=== PATIENT | female | born 1955 | race Caucasian/White ===

== ENCOUNTER → 2019-01-30 | Outpatient (CLI) | payer MEDICARE, OTHER | LOC: GMAM 10:23 | PROVIDERS: ATTEND Family Medicine | DX: C50.211 Malignant neoplasm of upper-inner quadrant of right female breast (principal); E78.2 Mixed hyperlipidemia; E03.9 Hypothyroidism, unspecified ==

== ENCOUNTER → 2019-02-08 | Outpatient (CLI) | payer MEDICARE, OTHER ==
--- NOTE | 2019-02-09 18:22 | US ---
EXAM DESCRIPTION: Abdomen,Limited: ULTRASOUND. CLINICAL HISTORY: RIGHT UPPER QUADRANT PAIN COMPARISON: XR abdomen 05 of February. TECHNIQUE: Transabdominal scanning: johnston-scale mode. Doppler mode. FINDINGS: Gallbladder: normal size, shape, echogenicity; no intraluminal stones or sludge. No fluid around the gallbladder. No wall thickening. 2.5 mm. Non-tender with transducer pressure. Common bile duct: caliber 4.5 mm within normal limits. Liver: Increased echogenicity; contour liver capsule smooth where seen. No fluid around the liver. Intrahepatic biliary ducts normal caliber. Doppler hepatopedal flow and normal caliber portal vein.. Long axis right lobe 13.9 cm. Pancreas: normal size and minimally increased echogenicity. Duct not seen. Proximal abdominal aorta: 1.6 cm normal caliber.. IVC: visualized and normal caliber. Right kidney: long axis measures 9.2 cm. Normal cortical Echogenicity. Normal cortical thickness. No stones or hydronephrosis. IMPRESSION: 1. Fatty liver normal size with no focal lesions. Physiologic blood flow and normal ducts. Smooth capsule with no ascites. Fatty pancreas but normal size. 2. Gallbladder and right kidney unremarkable. Normal caliber of the proximal abdominal aorta. Electronically signed by: Sagar Da Silva MD 02/09/2019 6:20 PM [facility]
== END ==
LOC: US 08:30
PROVIDERS: ATTEND Family Medicine
DX: K76.0 Fatty (change of) liver, not elsewhere classified (principal)

== ENCOUNTER → 2019-08-21 | Outpatient (CLI) | payer MEDICARE, OTHER | LOC: LAB.O 09:53 | PROVIDERS: ATTEND Family Medicine | DX: E78.5 Hyperlipidemia, unspecified (principal); E03.9 Hypothyroidism, unspecified; M85.80 Other specified disorders of bone density and structure, unspecified site; C73 Malignant neoplasm of thyroid gland; Z85.3 Personal history of malignant neoplasm of breast ==

== ENCOUNTER → 2019-09-02 | Outpatient (CLI) | payer MEDICARE, OTHER ==
--- NOTE | 2019-09-03 15:19 | MAM ---
EXAM DESCRIPTION: 3D Screening BILATERAL : Digital Mammography. CLINICAL HISTORY: 64 years Female SCREENING right breast cancer with lumpectomy and treatment November 2017. No current complaints. No family history breast cancer. Menarche age 13. Childbirth age 27. Menopause age 46. No HRT. Lifetime risk of developing breast cancer (Tyrer-Cuzick model)(%): Not calculated due to personal history of breast cancer. COMPARISON: 2-D digital screening bilateral mammography May 2014 diagnostic right breast 2-D mammography December 2017.. No prior reports available. TECHNIQUE: Bilateral CC and MLO projection full-field images, digital tomosynthesis mammographic technique Bilateral digital 2-D full-field MLO images. CAD available for 2-D images. Technologist note: Multiple skin moles on both breasts, so no markers applied. FINDINGS: The breast parenchymal density pattern is: Heterogeneously dense breast tissue, which may obscure small masses. No skin thickening or nipple retraction. Left axillary lymph nodes. Solitary microcalcifications and vascular calcifications. Surgical clips with minimal architectural distortion upper outer quadrant of the posterior third of the right breast at site of prior tumor resection and treatment. Bilateral fibroglandular tissues are decreased since the prior study. No new focal, stellate mass or density, focal asymmetry , and no suspicious microcalcifications bilaterally. IMPRESSION: Benign exam. BIRAD CATEGORY: 2 BENIGN FINDINGS. RECOMMENDATIONS: FOLLOW UP: Routine digital bilateral mammographic screening, one year interval from August 2019. Written communication explaining the IMPRESSION and follow-up, will be mailed to the patient and referring health care provider. According to the [employer], yearly mammograms are recommended starting at age 40 and continuing as long as a woman is in good health. Any breast change noted on a breast self-exam should be reported promptly to the patient's healthcare provider. Breast MRI is recommended for women with an approximately 20-25% or greater lifetime risk of breast cancer, including women with a strong family history of breast or ovarian cancer and women who have been treated for Hodgkin's disease. A negative mammographic report should not delay tissue diagnosis in patients with significant clinical history or physical findings. Extremely dense breast tissue limits the sensitivity of digital mammography. Electronically signed by: Sagar Da Silva MD 09/03/2019 3:18 PM CDT
== END ==
LOC: MAMMO 13:25
PROVIDERS: ATTEND Family Medicine
DX: Z12.31 Encounter for screening mammogram for malignant neoplasm of breast (principal); R00.2 Palpitations

== ENCOUNTER 2019-09-17 12:35 | Emergency (ER) | payer MEDICARE, OTHER ==
[2019-09-17 12:56] VITALS: O2SAT 99
[2019-09-17] MEDS: SODIUM CHLORIDE 0.9% (FLUSH) 10 ML SYG IV PRN ×2 (13:21→14:19)
[2019-09-17] MEDS ORDERED: ASPIRIN (CHEWABLE) 81 MG TAB PO ONE (13:28)
--- NOTE | 2019-09-17 13:50 | RAD ---
EXAM DESCRIPTION: Chest,1 View: CR/DR/XR. CLINICAL HISTORY: 64 years Female jaw pain COMPARISON: 2 view chest January 2018 and January 2019. TECHNIQUE: ONE VIEW PORTABLE. AP 1332 hours, upright position. FINDINGS: Moderate expansion of the lungs. No acute infiltrate. No pneumothorax or pleural effusion. Cardiopulmonary vascular structures and mediastinal silhouette are negative. Monitoring leads on the chest. IMPRESSION: No radiographic evidence of acute cardiopulmonary disease. Stable compared to prior studies. Electronically signed by: Sagar Da Silva MD 09/17/2019 1:49 PM CDT
[2019-09-17] MEDS ORDERED: MAGNESIUM SULFATE PREMIX 2GM 2 GM in PREMIX BAG 1 BAG IVPB ONE (14:30)
[2019-09-17] MEDS ORDERED: SODIUM CHLORIDE 0.9% IVPB SCH (15:30)
[2019-09-17] MEDS ORDERED: LABETALOL IVPB SCH (15:30)
[2019-09-17] MEDS ORDERED: METOPROLOL TARTRATE INJ 5 MG/5 ML VIAL IV ONE (15:31)
--- NOTE | 2019-09-17 16:07 | ED.PDOC ---
History of Present Illness - General Chief Complaint: Chest Pain/NH Stated Complaint: jaw pain, chest pain Time Seen by Provider: 09/17/19 13:27 Source: patient, RN notes reviewed, Vital Signs reviewed, family - Daughter Exam Limitations: no limitations - History of Present Illness Initial Comments: Patient is a 64-year-old white female who presents with complaints of jaw pain radiating to her neck. This started last night. It is intermittent. It is alternating between the left and right side of her face. It is associated with some mild shortness of breath. No diaphoresis. No chest pain. No nausea or vomiting patient with a history of coronary artery disease and had a recent nuclear treadmill stress test that was abnormal. Patient's faucets assembler is Dr. Clemons. Nothing seems to make the pain better or worse. Timing/Duration: 7-24 hours Severity: moderate Location: other - Jaw and neck Activities at Onset: none Prior Chest Pain/Cardiac Workup: cardiolye scan, heart attack Improving Factors: nothing Worsening Factors: nothing Nitro Today/Relief: no nitro taken today Aspirin Treatment Today: 81 mg x 4 Associated Symptoms: shortness of breath Allergies/Adverse Reactions: Allergies Codeine Allergy (Verified 06/30/12 11:20) Review of Systems - Review of Systems Constitutional: States: see HPI, malaise, weakness. Denies: chills, fever EENTM: States: see HPI, mouth pain Respiratory: States: see HPI, short of breath. Denies: cough, stridor Cardiology: States: no symptoms reported. Denies: chest pain, palpitations, syncope Gastrointestinal/Abdominal: States: no symptoms reported. Denies: abdominal pain, diarrhea, nausea, vomiting Genitourinary: States: no symptoms reported Musculoskeletal: States: see HPI, neck pain. Denies: back pain Skin: States: no symptoms reported Neurological: States: see HPI, anxiety, weakness. Denies: headache, numbness, paresthesia, tremors Endocrine: States: no symptoms reported Hematologic/Lymphatic: States: no symptoms reported All other Systems: No Change from Baseline Past Medical History (General) - Patient Medical History Hx Congestive Heart Failure: No Hx Thyroid Disease: Yes - thyroidectomy - Vaccination History Hx Tetanus, Diphtheria Vaccination: No Hx Influenza Vaccination: Yes Hx Pneumococcal Vaccination: No - Activities of Daily Living Hospice Agency (if applicable):: None - Female History Patient is a Female of Child Bearing Age (10 -59 yrs old): No Family Medical History - Family History Mother Family History: Unknown Physical Exam - Physical Exam General Appearance: Alert, Anxious, Well Developed, Well Groomed, Well Hydrated, Well Nourished Eyes, Ears, Nose, Throat Exam: PERRL/EOMI, normal ENT inspection, pharynx normal, other - Tenderness to palpation over the bilateral TMJs with increased pain with tragal traction and opening of the jaw. She additionally has some tenderness to palpation of the masseter muscles. Neck: full range of motion, supple, normal inspection Respiratory: chest non-tender, lungs clear, normal breath sounds, no respiratory distress, no accessory muscle use Cardiovascular/Chest: normal peripheral pulses, regular rate, rhythm, no edema, no gallop, no JVD, no murmur Peripheral Pulses: radial,right: 2+, radial,left: 2+ Gastrointestinal/Abdominal: normal bowel sounds, non tender, soft Extremity: normal range of motion, non-tender, normal inspection Neurologic: filling hand II-XII nml as tested, no motor/sensory deficits, alert, normal mood/affect, oriented x 3 Skin Exam: normal color, warm/dry Lymphatic: no adenopathy Progress - Progress Progress: Differential diagnosis: TMJ disease, anginal equivalent, AMI, ACS among others 09/17/19 16:10 Patient presented with jaw pain radiating to her neck. Initial cardiac his enzymes are negative. EKG shows some nonspecific ST changes. Chest x-ray is unremarkable. Due to the fact that the patient has an abnormal nuclear stress test, and at family's request, plan on transfer to [facility] for further evaluation with her faucets assembler. Of discussed this plan of care with the patient and she voices understanding and agreement. Patient has been accepted to the emergency department there at her [place] and will be seen by Dr. Paz, the ED physician upon arrival. Raghav London M.D. #[id number] - Results/Orders Results/Orders: EXAM DESCRIPTION: Chest,1 View: CR/DR/XR. CLINICAL HISTORY: 64 years Female jaw pain COMPARISON: 2 view chest January 2018 and January 2019. TECHNIQUE: ONE VIEW PORTABLE. AP 1332 hours, upright position. FINDINGS: Moderate expansion of the lungs. No acute infiltrate. No pneumothorax or pleural effusion. Cardiopulmonary vascular structures and mediastinal silhouette are negative. Monitoring leads on the chest. IMPRESSION: No radiographic evidence of acute cardiopulmonary disease. Stable compared to prior studies. Electronically signed by: Sagar Da Silva MD 09/17/2019 1:49 PM CDT 09/17/19 13:14 Sodium Chloride 0.9% (Flush) [Saline Flush Syringe] 10 ml IV PRN PRN EKG Stat Pulse Ox Stat 09/17/19 15:30 Labetalol Inj [Normodyne Inj] 200 mg Sodium Chloride 0.9% 250Ml [NS 250ml] 160 ml IVPB PRN Laboratory Results - last 24 hr 09/17/19 09/17/19 13:15 14:24 WBC 5.9 RBC 4.34 Hgb 14.4 Hct 42.0 MCV 96.8 MCH 33.3 H MCHC 34.4 RDW 13.8 Plt Count 135 MPV 10.2 Absolute Neuts (auto) 3.50 Absolute Lymphs (auto) 1.60 Absolute Monos (auto) 0.50 Absolute Eos (auto) 0.20 Absolute Basos (auto) 0.00 Neutrophils % 60.5 Lymphocytes % 27.4 Monocytes % 8.1 Eosinophils % 3.2 Basophils % 0.8 PT 10.3 INR 1.04 PTT (SP) 22.3 Sodium 139 Potassium 3.6 Chloride 103 Carbon Dioxide 24 Anion Gap 15.6 BUN 13 Creatinine 0.88 BUN/Creatinine Ratio 14.8 Random Glucose 109 H Serum Osmolality 278.2 Calcium 8.3 L Magnesium 1.6 L Creatine Kinase 145 H CK-MB (CK-2) 2.8 CK-MB (CK-2) % Not Reportable Troponin I < 0.02 B-Natriuretic Peptide 52.6 Urine Color Yellow Urine Appearance Clear Urine pH 7.0 Ur Specific [place] 1.010 Urine Protein Negative Urine Glucose (UA) Negative Urine Ketones Negative Urine Blood Negative Urine Nitrite Negative Urine Bilirubin Negative Urine Urobilinogen 0.2 Ur Leukocyte Esterase Negative Urine RBC 0-1 Urine WBC 0-1 Ur Epithelial Cells 5-10 Ur Transition Epith Cell 1-3 Urine Bacteria Rare EKG performed 17 September 2019 at 1245 hrs.: Normal sinus rhythm at 80 bpm, nonspecific ST changes, abnormal EKG. No comparison EKG available at this time. Vital Signs 09/17/19 09/17/19 09/17/19 12:40 13:01 13:03 Temperature 98.3 F Pulse Rate 86 75 Pulse Rate [ 86 86 brachial] Respiratory 22 22 Rate Blood Pressure 185/110 [Left Arm] O2 Sat by Pulse 99 Oximetry Departure - Departure Clinical Impression: Anginal equivalent Dyspnea Qualifiers: Dyspnea type: shortness of breath Qualified Code(s): R06.02 - Shortness of breath; R06.00 - Dyspnea, unspecified; R06.01 - Orthopnea Time of Disposition: 16:26 Disposition: Transfer to Hospital Condition: Good Departure Forms: ED Discharge - Pt. Copy, Patient Portal Self Enrollment Instructions: DI for Chest Pain Diet: resume usual diet Activity: walking as tolerated Referrals: Efe Moreau MD [Primary Care Provider] - 1-2 Weeks Transfer to Outside Facility - Transfer Information Decision to Transfer Date: 09/17/19 Decision to Transfer Time: 16:00 Reason for Transfer: required specialist not available Accepting Facility: [facility]
[2019-09-17 17:40] VITALS: BP 143/94; TEMP 97.7
== END 2019-09-17 16:55 | disposition short-term general hospital (02) ==
LOC: ER 12:35
DX: I20.9 Angina pectoris, unspecified (principal); R06.02 Shortness of breath; R68.84 Jaw pain
CPT/HCPCS: 36415; 71045; 80048; 81001; 82550; 82553; 83880; 84484; 85025; 85610; 85730; 93005; A4216; J2060; J3475

== ENCOUNTER → 2019-10-28 | Outpatient (CLI) | payer MEDICARE, OTHER | LOC: GMAM 10:40 | PROVIDERS: ATTEND Family Medicine | DX: E03.9 Hypothyroidism, unspecified (principal); E78.2 Mixed hyperlipidemia; E55.9 Vitamin D deficiency, unspecified ==

== ENCOUNTER → 2019-11-05 | Outpatient (CLI) | payer MEDICARE, OTHER | LOC: GMAM 16:50 | PROVIDERS: ATTEND Family Medicine | DX: R30.0 Dysuria (principal) ==

== ENCOUNTER → 2020-01-31 | Outpatient (CLI) | payer MEDICARE, OTHER | LOC: GMAM 13:19 | PROVIDERS: ATTEND Family Medicine | DX: C50.411 Malignant neoplasm of upper-outer quadrant of right female breast (principal); E55.9 Vitamin D deficiency, unspecified; E03.9 Hypothyroidism, unspecified; R10.11 Right upper quadrant pain; R73.9 Hyperglycemia, unspecified; E78.2 Mixed hyperlipidemia ==

== ENCOUNTER → 2020-02-06 | Outpatient (CLI) | payer MEDICARE, OTHER ==
--- NOTE | 2020-02-07 09:22 | US ---
Procedure: US ABDOMEN LIMITED Exam Date: 02/06/2020 Ordering Provider: Efe Moreau MD Clinical Indication: RUQ PAIN Comparison: 02/08/2019 Technique: Real-time ultrasonography was obtained over the right upper quadrant and construction sales representative images were recorded. Findings: There are no gallstones within the gallbladder lumen. There is no gallbladder wall thickening or pericholecystic fluid. The common bile duct is normal in size measuring 4 mm. The liver is normal in size and contour. There is diffuse increased echogenicity of the liver consistent with fatty infiltration. There is no hepatic mass. There is no intrahepatic ductal dilatation. Visualized pancreas, aorta and IVC are unremarkable. No hydronephrosis in the right kidney. There is no ascites. Impression: 1. Hepatic steatosis, otherwise unremarkable exam. Electronically signed by: Pete Nicholson MD 02/07/2020 9:21 AM [facility]
== END ==
LOC: US 09:46
PROVIDERS: ATTEND Family Medicine
DX: K76.0 Fatty (change of) liver, not elsewhere classified (principal); R10.11 Right upper quadrant pain

== ENCOUNTER → 2020-02-10 | Outpatient (CLI) | payer MEDICARE, OTHER ==
--- NOTE | 2020-02-11 11:39 | US ---
EXAM DESCRIPTION: Pelvic,Non-OB: Ultrasound. CLINICAL HISTORY: 64 years Female ENCOUNTER FOR GYNECOLOGICAL EXAM, W/O ABD FINDINGS COMPARISON: Ultrasound abdomen February 05 TECHNIQUE: Endovaginal scanning. Lester-scale and Doppler modes. FINDINGS: Uterus 6.2 x 2.9 x 4.0 cm. 36.8 mL. Endometrium 2.3 mm.. Myometrium heterogeneous. Heterogeneous mass measuring 1.4 x 1.3 x 1.0 cm. A second heterogeneous mass 1.5 x 1.4 x 1.2 cm with echogenic regions. Uterus not retroverted. Cervix unremarkable.. Cul-de-sac: No fluid.. Right ovary 0.9 x 0.5 x 0.7 cm. 0.15 mL. Minimal color Doppler vascularity. No follicles or cysts. No adnexal mass or free fluid. Left ovary 0.9 x 0.5 x 0.7 cm. 0.15 mL. Minimal color Doppler vascularity. No follicles or cysts. Serpiginous left adnexal mass with increased vascularity. IMPRESSION: 1. Normal size and orientation of the uterus. No endometrial thickening or fluid. Heterogeneous myometrium with multiple fibroids. Cervix is negative. No fluid in the cul-de-sac. 2. Bilateral small ovaries, with less than 1 mL volume. No follicles or cysts. Possible varicocele in the left adnexa. Electronically signed by: Sagar Da Silva MD 02/11/2020 11:37 AM [facility]YS[facility] PROFESSOR
== END ==
LOC: US 10:02
PROVIDERS: ATTEND Clinical Nurse Specialist Women's Health
DX: Z01.419 Encounter for gynecological examination (general) (routine) without abnormal findings (principal); N83.9 Noninflammatory disorder of ovary, fallopian tube and broad ligament, unspecified